=== PATIENT | male | born 1970 | race Two or more races ===

== ENCOUNTER 2018-12-24 21:45 | Emergency (ER) | payer SELFPAY ==
[~2018-12-24] VITALS: Ht 177.8 cm; Wt 100.8 kg
[2018-12-24 22:05] VITALS: BP 148/74; PULSE 64; RESP 18; Ht 177.8 cm; Wt 100.8 kg
== END 2018-12-24 23:00 | disposition left against medical advice (07) ==
LOC: E/R 21:45
DX: Z53.21 Procedure and treatment not carried out due to patient leaving prior to being seen by health care provider (principal)
CPT/HCPCS: 93005